=== PATIENT | male | born 1960 ===

== ENCOUNTER 2023-07-25 07:18 | Day surgery (SDC) | payer MEDICARE ==
[~2023-07-25] VITALS: Ht 180.3 cm; Wt 87.0 kg
[2023-07-25] MEDS ORDERED: LOSA25 (07:36)
[2023-07-25 09:23] VITALS: BP 112/74
== END 2023-07-25 09:33 | disposition home or self-care (01) ==
LOC: ORSCSDS 07:18
PROVIDERS: Internal Medicine Gastroenterology
PROC: 0DBN8ZX Excision of Sigmoid Colon, Via Natural or Artificial Opening Endoscopic, Diagnostic (ICD-10-PCS; principal; 2023-07-25 08:45)
DX: Z12.11 Encounter for screening for malignant neoplasm of colon (principal); R19.5 Other fecal abnormalities; D12.5 Benign neoplasm of sigmoid colon; K57.30 Diverticulosis of large intestine without perforation or abscess without bleeding; K64.8 Other hemorrhoids; I10 Essential (primary) hypertension; Z87.891 Personal history of nicotine dependence; Z79.899 Other long term (current) drug therapy
CPT/HCPCS: 88305; J2704; J7120